=== PATIENT | male | born 1975 | race Two or more races ===

== ENCOUNTER 2018-09-26 09:06 | Outpatient (CLI) | payer BC | END 2018-09-26 09:12 | disposition home or self-care (01) | LOC: RAD 09:06 | DX: Z01.89 Encounter for other specified special examinations (principal) ==

== ENCOUNTER → 2019-10-24 | Day surgery (SDC) | payer BC ==
[~2019-10-24] MED LIST: MIRALAX17 GM PO; NAPROXEN500 MG PO; NEURONTIN300 MG PO; SYNTHROID50 MCG PO; TYLENOL ARTHRI650 MG PO; ULTRAM50 MG PO; [UNRECOGNIZED DRUG - OTHER] PO
== END | disposition home or self-care (01) ==
LOC: CIR.AMB 08:05
DX: K40.90 Unilateral inguinal hernia, without obstruction or gangrene, not specified as recurrent (principal); K42.9 Umbilical hernia without obstruction or gangrene; D17.6 Benign lipomatous neoplasm of spermatic cord